=== PATIENT | male | born 1990 | race African-American/Black ===

== ENCOUNTER 2016-08-10 18:07 | Emergency (ER) | payer OTHER ==
[~2016-08-10] VITALS: Ht 180.3 cm; Wt 117.9 kg
[~2016-08-10 18:07] MED LIST: ADVAIR 250/501 EA INH; ADVAIR 500/501 E1 INH; ALBUTEROL; ALBUTEROL NEB; ALBUTEROL0.09 MG/A2 INH; AMOXIL500 MG PO; ANAPROX DS550 MG PO; AUGMENTIN 875 M1 TAB PO; BACTRIM DS 8001 TA1 PO; CLARITIN10 MG PO; CORDROL20 MG PO; FIORICET 325 MG1 TAB PO; FLONASE0.05 MG/AC NS; LOMOTIL 0.025 M1 TA1 PO; MEDROL DOSEPAK4 MG PO; MOTRIN800 MG PO; PHENERGAN25 M1 PO; PREDNISONE10 MG PO; PROVENTIL0.09 MG/AC IH; SEPTRA DS 800 M1 TAB PO; SUMATRIPTAN SUC50 M1 PO; TOPIRAMATE50 M1 PO; TREXIMET 500 MG1 TAB PO; ULTRAM50 MG PO; VENTOLIN 02.5 MG/3 M INH; VERAPAMIL HCL120 M2 PO; VIBRAMYCIN100 MG PO; ZITHROMAX Z PA250 MG PO; ZOFRAN ODT4 MG SL; Zofran4 MG PO
[2016-08-10 18:56] LABS: BASO % 0.2 % (0.0-1.0); EOS # 0.1 10*3/uL (0.0-0.4); EOS % 0.9 % (1.0-4.0); HEMATOCRIT 41.2 % (42.0-52.0); HEMOGLOBIN 14.5 g/dl (14.0-18.0); LYMPH # 1.9 10*3/uL (1.3-4.4); LYMPH % 21.8 % (27.0-41.0); MEAN CELL VOLUME 85.5 fl (80.0-94.0); MEAN CORPUSCULAR HGB 30.1 pg (27.0-31.0); MEAN CORPUSCULAR HGB CONC 35.2 g/dl (33.0-37.0); MONO # 0.6 10*3/uL (0.1-1.0); MONO % 6.7 % (3.0-9.0); NEUT % 70.2 % (47.0-73.0); PLATELET COUNT AUTOMATED 224 10*3/uL (130-400); RED BLOOD COUNT 4.82 10*6/uL (4.50-5.90); RED CELL DISTRI WIDTH 12.8 % (0-14.5); WHITE BLOOD COUNT 8.5 10*3/uL (4.8-10.8)
[2016-08-10 19:06] LABS: BUN 13 mg/dl (7-24); CARBON DIOXIDE 28 mmol/L (21-32); CHLORIDE 109 mmol/L (98-107); EST GLOM FILT AFRICAN AMERICAN > 60 ml/min; GLUCOSE 105 mg/dL (65-99); POTASSIUM 3.7 mmol/L (3.5-5.1); SODIUM 144 mmol/L (136-145)
[2016-08-10 19:09] LABS: C-REACTIVE PROTEIN < 0.29 MG/DL (0-0.3)
[2016-08-10 19:13] VITALS: BP 142/70
== END 2016-08-10 20:31 | disposition home or self-care (01) ==
LOC: ED 18:07
PROVIDERS: Emergency Medicine Emergency Medical Services
DX: G43.909 Migraine, unspecified, not intractable, without status migrainosus (principal); V86.99XA Unspecified occupant of other special all-terrain or other off-road motor vehicle injured in nontraffic accident, initial encounter; Y93.89 Activity, other specified; Y92.413 State road as the place of occurrence of the external cause; Y99.9 Unspecified external cause status; Z88.8 Allergy status to other drugs, medicaments and biological substances

== ENCOUNTER 2017-01-31 06:28 | Emergency (ER) | payer OTHER ==
[~2017-01-31] VITALS: Ht 180.3 cm; Wt 113.4 kg
[2017-01-31 06:41] VITALS: BP 155/85
== END 2017-01-31 07:50 | disposition home or self-care (01) ==
LOC: ED 06:28
DX: S46.912A Strain of unspecified muscle, fascia and tendon at shoulder and upper arm level, left arm, initial encounter (principal); G43.909 Migraine, unspecified, not intractable, without status migrainosus; I10 Essential (primary) hypertension; J45.909 Unspecified asthma, uncomplicated; Z88.8 Allergy status to other drugs, medicaments and biological substances; Z88.6 Allergy status to analgesic agent; X50.0XXA Overexertion from strenuous movement or load, initial encounter; Y93.89 Activity, other specified; Y92.69 Other specified industrial and construction area as the place of occurrence of the external cause; Y99.9 Unspecified external cause status

== ENCOUNTER 2017-06-15 20:27 | Emergency (ER) | payer OTHER ==
[~2017-06-15] VITALS: Ht 177.8 cm; Wt 117.9 kg
[2017-06-15 20:32] VITALS: BP 119/68
[2017-06-15] MEDS ORDERED: VERAPAMIL HCL120 M2 PO (20:34)
[2017-06-15] MEDS ORDERED: ZITHROMAX250 MG PO (22:18)
[2017-06-15] MEDS ORDERED: DELTASONE20 M1 PO (22:18)
== END 2017-06-15 23:45 | disposition home or self-care (01) ==
LOC: ED 20:27
DX: J06.9 Acute upper respiratory infection, unspecified (principal); J45.909 Unspecified asthma, uncomplicated; Z88.8 Allergy status to other drugs, medicaments and biological substances; Z79.899 Other long term (current) drug therapy

== ENCOUNTER 2017-07-19 13:48 | Emergency (ER) | payer OTHER ==
[~2017-07-19] VITALS: Ht 180.3 cm; Wt 117.9 kg
[~2017-07-19 13:48] MED LIST changes: +DELTASONE20 M1 PO; +ZITHROMAX250 MG PO
[2017-07-19] MEDS ORDERED: TOPIRAMATE50 M2 PO (13:50)
[2017-07-19 13:59] VITALS: BP 125/74
== END 2017-07-19 15:17 | disposition home or self-care (01) ==
LOC: ED 13:48
DX: G43.909 Migraine, unspecified, not intractable, without status migrainosus (principal); F10.10 Alcohol abuse, uncomplicated; Z88.8 Allergy status to other drugs, medicaments and biological substances; Z79.899 Other long term (current) drug therapy

== ENCOUNTER 2018-01-11 15:49 | Emergency (ER) | payer OTHER ==
[~2018-01-11] VITALS: Ht 180.3 cm; Wt 122.5 kg
[~2018-01-11 15:49] MED LIST changes: +TOPIRAMATE50 M2 PO
[2018-01-11] MEDS ORDERED: PROAIR HFA8.5 GM INH (16:03)
[2018-01-11] MEDS ORDERED: ADV 500/50 INH (16:03)
[2018-01-11 16:04] VITALS: BP 136/78
[2018-01-11] MEDS ORDERED: PREDNISONE20 M1 PO (16:19)
== END 2018-01-11 16:27 | disposition home or self-care (01) ==
LOC: ED 15:49
DX: L25.9 Unspecified contact dermatitis, unspecified cause (principal); J45.909 Unspecified asthma, uncomplicated; Z88.8 Allergy status to other drugs, medicaments and biological substances

== ENCOUNTER 2018-04-25 18:17 | Emergency (ER) | payer SELFPAY ==
[~2018-04-25] VITALS: Wt 124.7 kg
[~2018-04-25 18:17] MED LIST changes: +ADV 500/50 INH; +PREDNISONE20 M1 PO; +PROAIR HFA8.5 GM INH
[2018-04-25 18:18] VITALS: BP 160/75
== END 2018-04-25 20:08 | disposition home or self-care (01) ==
LOC: ED 18:17
DX: R51 Headache (principal); R11.0 Nausea; Z88.8 Allergy status to other drugs, medicaments and biological substances; Z79.899 Other long term (current) drug therapy

== ENCOUNTER 2018-06-03 23:16 | Emergency (ER) | payer SELFPAY ==
[~2018-06-03] VITALS: Ht 180.3 cm; Wt 128.4 kg
[2018-06-03 23:17] VITALS: BP 155/83
[2018-06-04] MEDS ORDERED: NAPROSYN500 MG PO (00:35)
== END 2018-06-04 01:00 | disposition home or self-care (01) ==
LOC: ED 23:16
DX: S86.912A Strain of unspecified muscle(s) and tendon(s) at lower leg level, left leg, initial encounter (principal); Z88.8 Allergy status to other drugs, medicaments and biological substances; X58.XXXA Exposure to other specified factors, initial encounter; Y93.89 Activity, other specified; Y92.89 Other specified places as the place of occurrence of the external cause; Y99.8 Other external cause status

== ENCOUNTER 2019-03-12 21:05 | Emergency (ER) | payer OTHER ==
[~2019-03-12] VITALS: Ht 180.3 cm; Wt 115.7 kg
[~2019-03-12 21:05] MED LIST changes: +FLONASE ALLERG9.9 ML NAS; +NAPROSYN500 MG PO
[2019-03-12 21:07] VITALS: BP 162/87
== END 2019-03-12 23:45 | disposition home or self-care (01) ==
LOC: ED 21:05
DX: S93.402A Sprain of unspecified ligament of left ankle, initial encounter (principal); J45.909 Unspecified asthma, uncomplicated; Z88.8 Allergy status to other drugs, medicaments and biological substances; Z79.899 Other long term (current) drug therapy; X50.0XXA Overexertion from strenuous movement or load, initial encounter; Y93.89 Activity, other specified; Y92.098 Other place in other non-institutional residence as the place of occurrence of the external cause; Y99.8 Other external cause status

== ENCOUNTER 2019-03-25 21:32 | Emergency (ER) | payer OTHER ==
[~2019-03-25] VITALS: Ht 180.3 cm; Wt 120.7 kg
[2019-03-25 21:33] VITALS: BP 129/70
[2019-03-26] MEDS ORDERED: XARELTO1 EACH PO (00:43)
== END 2019-03-26 01:25 | disposition home or self-care (01) ==
LOC: ED 21:32
DX: I82.412 Acute embolism and thrombosis of left femoral vein (principal); J45.909 Unspecified asthma, uncomplicated; Z88.8 Allergy status to other drugs, medicaments and biological substances

== ENCOUNTER → 2019-04-04 | Outpatient (CLI) | payer OTHER ==
[~2019-04-04] MED LIST changes: +XARELTO1 EACH PO
== END | disposition home or self-care (01) ==
LOC: US 14:11
DX: R60.0 Localized edema (principal)

== ENCOUNTER → 2019-04-27 | Outpatient (CLI) | payer OTHER | END | disposition home or self-care (01) | LOC: US 13:30 | DX: M76.62 Achilles tendinitis, left leg (principal); M67.88 Other specified disorders of synovium and tendon, other site; Z86.718 Personal history of other venous thrombosis and embolism ==

== ENCOUNTER 2019-11-18 17:52 | Emergency (ER) | payer SELFPAY ==
[~2019-11-18] VITALS: Ht 180.3 cm; Wt 127.0 kg
[2019-11-18 19:14] VITALS: BP 158/85
[2019-11-18 19:56] LABS: BILIRUBIN 1+ (NEGATIVE); BLOOD NEGATIVE (NEGATIVE); CLARITY CLEAR (CLEAR); COLOR YELLOW (YELLOW); GLUCOSE NEGATIVE (NEGATIVE); KETONE NEGATIVE (NEGATIVE); LEUKO ESTERASE NEGATIVE (NEGATIVE); NITRITE NEGATIVE (NEGATIVE); SPECIFIC GRAVITY 1.025 (1.005-1.030); UROBILINOGEN 0.2 E.U./dl (0.2-1.0)
[2019-11-18 19:57] LABS: BACTERIA TRACE; WBC 0-2 wbc/hpf (0-5)
[2019-11-18 20:00] LABS: BASO % 0.4 % (0.0-1.0); EOS # 0.1 10*3/uL (0.0-0.4); EOS % 1.3 % (1.0-4.0); LYMPH # 1.9 10*3/uL (1.3-4.4); LYMPH % 28.6 % (27.0-41.0); MEAN CORPUSCULAR HGB 29.6 pg (27.0-31.0); MEAN CORPUSCULAR HGB CONC 34.4 g/dl (33.0-37.0); MEAN PLATELET VOLUME 11.3 fl (9.6-12.3); MONO # 0.4 10*3/uL (0.1-1.0); NEUT # 4.3 10*3/uL (2.3-7.9); NEUT % 63.6 % (47.0-73.0); PLATELET COUNT AUTOMATED 211 10*3/uL (130-400); RED BLOOD COUNT 4.77 10*6/uL (4.50-5.90); RED CELL DISTRI WIDTH 12.6 % (0-14.5); WHITE BLOOD COUNT 6.8 10*3/uL (4.8-10.8)
[2019-11-18 20:15] LABS: ALBUMIN 3.9 gm/dl (3.1-4.5); ALKALINE PHOSPHATASE 115 U/L (45-117); BUN 8 mg/dl (7-24); CHLORIDE 110 mmol/L (98-107); CREATININE 0.82 mg/dL (0.70-1.30); LIPASE 95 U/L (73-393); POTASSIUM 3.6 mmol/L (3.5-5.1); SGOT/AST 9 IU/L (3-35); SGPT/ALT 26 U/L (12-78); SODIUM 143 mmol/L (136-145); TOTAL PROTEIN 7.6 gm/dL (6.4-8.2)
[2019-11-18] MEDS ORDERED: OMEPRAZOLE20 M2 PO (21:08)
[2019-11-18] MEDS ORDERED: PEPCID20 MG PO (21:08)
== END 2019-11-18 21:17 | disposition home or self-care (01) ==
LOC: ED 17:52
PROVIDERS: Physician Assistant
DX: R10.13 Epigastric pain (principal); J45.909 Unspecified asthma, uncomplicated; F17.200 Nicotine dependence, unspecified, uncomplicated; Z88.8 Allergy status to other drugs, medicaments and biological substances; Z79.899 Other long term (current) drug therapy

== ENCOUNTER 2019-11-24 03:27 | Emergency (ER) | payer SELFPAY ==
[~2019-11-24] VITALS: Ht 154.9 cm
[~2019-11-24 03:27] MED LIST changes: +OMEPRAZOLE20 M2 PO; +PEPCID20 MG PO
[2019-11-24] MEDS ORDERED: ADVAIR 250/501 EA INH (03:33)
[2019-11-24] MEDS ORDERED: ZESTORETIC 20-1 EACH PO (03:33)
[2019-11-24] MEDS ORDERED: SUMATRIPTAN SUC50 M1 PO (03:34)
[2019-11-24] MEDS ORDERED: TOPIRAMATE50 M2 PO (03:34)
[2019-11-24] MEDS ORDERED: VERAPAMIL HCL120 M2 PO (03:34)
[2019-11-24 05:38] LABS: ALBUMIN 3.4 gm/dl (3.1-4.5); BUN 13 mg/dl (7-24); CHLORIDE 111 mmol/L (98-107); CREATININE 0.76 mg/dL (0.70-1.30); POTASSIUM 4.1 mmol/L (3.5-5.1); SGOT/AST 10 IU/L (3-35); SGPT/ALT 29 U/L (12-78); SODIUM 141 mmol/L (136-145); TOTAL PROTEIN 6.9 gm/dL (6.4-8.2)
[2019-11-24 05:39] LABS: ALKALINE PHOSPHATASE 104 U/L (45-117)
[2019-11-24 05:47] LABS: BASO % 0.2 % (0.0-1.0); EOS # 0.1 10*3/uL (0.0-0.4); EOS % 2.3 % (1.0-4.0); HEMATOCRIT 39.7 % (42.0-52.0); LYMPH # 1.2 10*3/uL (1.3-4.4); LYMPH % 20.3 % (27.0-41.0); MEAN CELL VOLUME 86.7 fl (80.0-94.0); MEAN CORPUSCULAR HGB 29.9 pg (27.0-31.0); MEAN CORPUSCULAR HGB CONC 34.5 g/dl (33.0-37.0); MEAN PLATELET VOLUME 11.5 fl (9.6-12.3); MONO # 0.4 10*3/uL (0.1-1.0); MONO % 7.2 % (3.0-9.0); NEUT # 4.2 10*3/uL (2.3-7.9); NEUT % 69.8 % (47.0-73.0); PLATELET COUNT AUTOMATED 202 10*3/uL (130-400); RED BLOOD COUNT 4.58 10*6/uL (4.50-5.90); RED CELL DISTRI WIDTH 12.8 % (0-14.5)
[2019-11-24 07:05] VITALS: BP 122/68
[2019-11-24] MEDS ORDERED: AMOXICILLIN500 M2 PO (07:46)
== END 2019-11-24 07:05 | disposition home or self-care (01) ==
LOC: ED 03:27
PROVIDERS: Emergency Medicine Emergency Medical Services
DX: J02.9 Acute pharyngitis, unspecified (principal); Z20.828 Contact with and (suspected) exposure to other viral communicable diseases; Z88.8 Allergy status to other drugs, medicaments and biological substances; Z79.899 Other long term (current) drug therapy

== ENCOUNTER 2019-11-24 20:25 | Emergency (ER) | payer SELFPAY ==
[~2019-11-24] VITALS: Ht 180.3 cm; Wt 127.0 kg
[~2019-11-24 20:25] MED LIST changes: +AMOXICILLIN500 M2 PO; +ZESTORETIC 20-1 EACH PO
[2019-11-24 20:31] VITALS: BP 169/87
== END 2019-11-24 21:51 | disposition home or self-care (01) ==
LOC: ED 20:25
DX: L27.0 Generalized skin eruption due to drugs and medicaments taken internally (principal); T37.8X5A Adverse effect of other specified systemic anti-infectives and antiparasitics, initial encounter; J45.909 Unspecified asthma, uncomplicated; I10 Essential (primary) hypertension; Z88.8 Allergy status to other drugs, medicaments and biological substances; Z79.899 Other long term (current) drug therapy; Y92.89 Other specified places as the place of occurrence of the external cause

== ENCOUNTER 2020-04-14 13:14 | Emergency (ER) | payer SELFPAY ==
[~2020-04-14] VITALS: Ht 180.3 cm; Wt 129.3 kg
[2020-04-14 14:03] LABS: BASO % 0.2 % (0.0-1.0); EOS # 0.1 10*3/uL (0.0-0.4); EOS % 0.7 % (1.0-4.0); HEMATOCRIT 44.6 % (42.0-52.0); LYMPH # 1.6 10*3/uL (1.3-4.4); LYMPH % 17.4 % (27.0-41.0); MEAN CELL VOLUME 83.4 fl (80.0-94.0); MEAN CORPUSCULAR HGB 29.2 pg (27.0-31.0); MEAN PLATELET VOLUME 11.2 fl (9.6-12.3); MONO # 0.6 10*3/uL (0.1-1.0); MONO % 6.5 % (3.0-9.0); NEUT # 6.7 10*3/uL (2.3-7.9); PLATELET COUNT AUTOMATED 251 10*3/uL (130-400); RED BLOOD COUNT 5.35 10*6/uL (4.50-5.90); RED CELL DISTRI WIDTH 11.9 % (0-14.5); WHITE BLOOD COUNT 8.9 10*3/uL (4.8-10.8)
[2020-04-14 14:06] LABS: BILIRUBIN Negative (Negative); BLOOD Negative (Negative); CLARITY Clear (Clear); COLOR Yellow (Yellow); GLUCOSE Negative (Negative); KETONE Negative (Negative); LEUKO ESTERASE Negative (Negative); NITRITE Negative (Negative); PH 7.5 (4.5-8.0); UROBILINOGEN 0.2 E.U./dl (0.0-1.0)
[2020-04-14 14:12] LABS: BACTERIA TRACE; EPITHELIAL CELLS 0-2; WBC 0-2 wbc/hpf (0-5)
[2020-04-14 14:20] LABS: ALBUMIN 4.3 gm/dl (3.1-4.5); ALKALINE PHOSPHATASE 118 U/L (45-117); BUN 6 mg/dl (7-24); CHLORIDE 107 mmol/L (98-107); CREATININE 0.81 mg/dL (0.70-1.30); LIPASE 76 U/L (73-393); POTASSIUM 3.8 mmol/L (3.5-5.1); SGOT/AST 21 IU/L (3-35); SGPT/ALT 49 U/L (12-78); SODIUM 140 mmol/L (136-145); TOTAL PROTEIN 8.3 gm/dL (6.4-8.2)
[2020-04-14 16:02] VITALS: BP 119/80
== END 2020-04-14 16:15 | disposition home or self-care (01) ==
LOC: ED 13:14
PROVIDERS: Nurse Practitioner Family
DX: R10.33 Periumbilical pain (principal); I10 Essential (primary) hypertension; J45.909 Unspecified asthma, uncomplicated; Z88.8 Allergy status to other drugs, medicaments and biological substances; Z79.2 Long term (current) use of antibiotics; Z79.899 Other long term (current) drug therapy

== ENCOUNTER 2020-07-21 19:57 | Emergency (ER) | payer SELFPAY ==
[~2020-07-21] VITALS: Ht 180.3 cm; Wt 127.0 kg
[2020-07-21 20:04] VITALS: BP 137/86
[2020-07-21] MEDS ORDERED: PREDNISONE20 M1 PO (21:35)
[2020-07-21] MEDS ORDERED: VENTOLIN 02.5 MG/3 M INH (21:35)
== END 2020-07-21 21:56 | disposition home or self-care (01) ==
LOC: ED 19:57
DX: J45.901 Unspecified asthma with (acute) exacerbation (principal); I10 Essential (primary) hypertension; Z88.8 Allergy status to other drugs, medicaments and biological substances; Z79.899 Other long term (current) drug therapy

== ENCOUNTER 2020-08-06 19:34 | Emergency (ER) | payer SELFPAY ==
[~2020-08-06] VITALS: Ht 180.3 cm; Wt 127.0 kg
[2020-08-06 19:50] VITALS: BP 136/77
[2020-08-06] MEDS ORDERED: ROBAXIN-750750 MG PO (21:59)
[2020-08-06] MEDS ORDERED: IBUPROFEN600 MG PO (21:59)
== END 2020-08-06 22:10 | disposition home or self-care (01) ==
LOC: ED 19:34
DX: S33.5XXA Sprain of ligaments of lumbar spine, initial encounter (principal); S13.9XXA Sprain of joints and ligaments of unspecified parts of neck, initial encounter; J45.909 Unspecified asthma, uncomplicated; I10 Essential (primary) hypertension; Z88.8 Allergy status to other drugs, medicaments and biological substances; Z79.899 Other long term (current) drug therapy; W10.8XXA Fall (on) (from) other stairs and steps, initial encounter; Y93.89 Activity, other specified; Y92.89 Other specified places as the place of occurrence of the external cause; Y99.8 Other external cause status

== ENCOUNTER 2021-01-07 17:43 | Emergency (ER) | payer OTHER ==
[~2021-01-07 17:43] MED LIST changes: +IBUPROFEN600 MG PO; +ROBAXIN-750750 MG PO
[2021-01-07 18:03] VITALS: BP 152/91
[2021-01-07] MEDS ORDERED: Motrin,Rufen800 MG PO (18:54)
[2021-01-07] MEDS ORDERED: AMOXICILLIN500 M2 PO (18:54)
== END 2021-01-07 18:59 | disposition home or self-care (01) ==
LOC: ED 17:43
DX: K08.89 Other specified disorders of teeth and supporting structures (principal); Z88.8 Allergy status to other drugs, medicaments and biological substances; Z79.899 Other long term (current) drug therapy

== ENCOUNTER 2021-04-08 06:18 | Emergency (ER) | payer OTHER ==
[~2021-04-08] VITALS: Ht 180.3 cm; Wt 118.4 kg
[~2021-04-08 06:18] MED LIST changes: +Motrin,Rufen800 MG PO
[2021-04-08 06:28] VITALS: BP 133/79
[2021-04-08 08:23] LABS: BASO % 0.2 % (0.0-1.0); EOS # 0.1 10*3/uL (0.0-0.4); EOS % 1.7 % (1.0-4.0); HEMATOCRIT 43.6 % (42.0-52.0); LYMPH # 1.5 10*3/uL (1.3-4.4); LYMPH % 25.9 % (27.0-41.0); MEAN CELL VOLUME 85.7 fl (80.0-94.0); MEAN CORPUSCULAR HGB 29.3 pg (27.0-31.0); MEAN CORPUSCULAR HGB CONC 34.2 g/dl (33.0-37.0); MEAN PLATELET VOLUME 11.2 fl (9.6-12.3); MONO # 0.5 10*3/uL (0.1-1.0); MONO % 8.8 % (3.0-9.0); NEUT # 3.7 10*3/uL (2.3-7.9); NEUT % 63.1 % (47.0-73.0); PLATELET COUNT AUTOMATED 214 10*3/uL (130-400); RED BLOOD COUNT 5.09 10*6/uL (4.50-5.90); RED CELL DISTRI WIDTH 12.8 % (0-14.5); WHITE BLOOD COUNT 5.9 10*3/uL (4.8-10.8)
[2021-04-08 08:39] LABS: ALBUMIN 3.6 gm/dl (3.1-4.5); ALKALINE PHOSPHATASE 102 U/L (45-117); BUN 9 mg/dl (7-24); CHLORIDE 110 mmol/L (98-107); CREATININE 0.84 mg/dL (0.70-1.30); SGOT/AST 15 IU/L (3-35); SGPT/ALT 28 U/L (12-78); SODIUM 141 mmol/L (136-145); TOTAL PROTEIN 7.1 gm/dL (6.4-8.2)
[2021-04-08] MEDS ORDERED: Motrin,Rufen800 MG PO (10:18)
== END 2021-04-08 10:22 | disposition home or self-care (01) ==
LOC: ED 06:18
PROVIDERS: Emergency Medicine
DX: G43.909 Migraine, unspecified, not intractable, without status migrainosus (principal); Z88.8 Allergy status to other drugs, medicaments and biological substances; Z79.899 Other long term (current) drug therapy